=== PATIENT | female | born 1985 | race Native Hawaiian/Other Pacific Islander ===

== ENCOUNTER → 2019-06-28 12:41 | Outpatient (CLI) | payer OTHER, SELFPAY ==
[2019-06-28 13:24] LABS: Influenza A - CEPHEID Flu A NEGATIVE (NEGATIVE); Influenza B - CEPHEID Flu B POSITIVE (NEGATIVE)
[2019-07-03 07:08] LABS: COVID19 Sendout Not Detected (Not Detected)
== END ==
PROVIDERS: PCP Family Medicine; Visit Provider Family Medicine
DX: Z03.818 Encounter for observation for suspected exposure to other biological agents ruled out (principal); R05 Cough
CPT/HCPCS: 87502; 87635

== ENCOUNTER → 2019-07-29 12:42 | Outpatient (CLI) | payer SELFPAY ==
--- NOTE | 2019-07-29 12:46 | DI.US.S_ITS ---
PROCEDURE: US OB <= 14 WEEKS FETUS INDICATIONS: DATES OUTSIDE/PRIOR DATING DATA: Last menstrual period (LMP): 05/28/19. LMP-based estimated date of delivery (SAILAJA): 03/03/20. First dating scan (date and location): This study, 07/29/19. Estimated date of delivery (SAILAJA) from first dating scan: 02/29/20, plus or -5 days. TECHNIQUE: Real-time scanning was performed of the fetus and maternal pelvic organs, with image documentation. Endovaginal scanning was also performed to better visualize the fetus and maternal ovaries. COMPARISON: None. FINDINGS: Embryo: Single living intrauterine gestation with heart rate 175 beats per minute and with crown-rump length 2.5 cm which correlates with a gestational age of 9 weeks 2 days, plus or -5 days. Measurement variability in dating: +/- 4 weeks by LMP, +/- 7 days by mean sac diameter (use before 6 weeks gestation if crown-rump length not able to be measured), +/- 5 days by crown-rump length (up to 8 weeks 6 days gestation), +/- 7 days by crown-rump length (up to 13 weeks 6 days gestation). Maternal organs: Ovaries normal considering gestational status. Limited images through the kidneys demonstrate no hydronephrosis. IMPRESSION: 9 week 2 day gestational age, delivery date projected to be centered on 02/29/20. Followup anatomic survey at 20 weeks gestation is recommended. Dictated by: Jae Vale M.D. on 07/29/2019 at 13:58 Approved by: Jae Vale M.D. on 07/29/2019 at 14:00
== END ==
PROVIDERS: PCP Family Medicine; Referring Provider Family Medicine; Visit Provider Family Medicine
DX: Z34.81 Encounter for supervision of other normal pregnancy, first trimester (principal); Z3A.09 9 weeks gestation of pregnancy
CPT/HCPCS: 76801; 76817

== ENCOUNTER → 2019-08-30 09:34 | Outpatient (CLI) | payer SELFPAY ==
[2019-08-30 12:30] LABS: Appearance Urine UA CLEAR; Bilirubin Urine UA NEGATIVE (NEGATIVE); Color Urine UA YELLOW; Glucose Urine UA NEGATIVE (Negative); Ketones Urine UA NEGATIVE (NEGATIVE); Leukocyte Esterase Urine UA NEGATIVE (NEGATIVE); Nitrite Urine UA NEGATIVE (Negative); Occult Blood Urine UA NEGATIVE (Negative); Protein Urine UA NEGATIVE (Negative); Specific Gravity Urine UA 1.015 (1.000-1.035); Urobilinogen Urine UA 0.2 E.U./dL (0.2)
[2019-08-30 12:36] LABS: Add Manual Diff / Slide Review NO; Basophils Absolute Auto 0 /uL (0-100); Basophils Percent Auto 0.6 % (0-2); Eosinophils Absolute Auto 200 /uL (0-450); Hematocrit 37.3 % (36-46); Hemoglobin 13.4 g/dL (12.0-16.0); Lymphocytes Absolute Auto 1400 /uL (1100-4500); Lymphocytes Percent Auto 18.8 % (25-40); Mean Corpuscular HGB Conc 35.8 % (30-36); Mean Corpuscular Hemoglobin 33.2 PG (26-34); Mean Corpuscular Volume 92.6 fL (80-100); Monocytes Absolute Auto 500 /uL (0-900); Monocytes Percent Auto 7.1 % (3-14); Neutrophils Absolute Auto 5500 /uL (1500-7000); Neutrophils Percent Auto 71.5 % (50-75); Platelet Count 180 X10^3/uL (150-400); Red Blood Cell Count 4.03 X10^6/uL (4.0-5.2); Red Cell Distribution Width 13.2 % (11.6-14.8); White Blood Cell Count 7.7 X10^3/uL (4.5-11.0)
[2019-08-30 12:37] LABS: TSH w/ Reflex to FT4 0.69 uIU/mL (0.47-4.68)
[2019-08-30 13:42] LABS: Hepatitis B Surface Antigen NEGATIVE s/c (NEGATIVE); Rubella Antibody IgG 32.3 IU/mL (>15)
[2019-08-30 13:58] LABS: HIV 1 & 2 Ab/Ag 4th Gen Combo NEGATIVE (NEGATIVE); Hep C Virus Ab w/Reflex Quant NEGATIVE s/c (NEGATIVE)
[2019-08-31 03:40] LABS: RPR Screen Non Reactive (Non Reactive)
[2019-08-31 11:21] LABS: Varicella IgG Antibody 654 index (Immune >165)
== END ==
PROVIDERS: PCP Family Medicine; Referring Provider Family Medicine; Visit Provider Family Medicine
DX: Z34.81 Encounter for supervision of other normal pregnancy, first trimester (principal); M79.672 Pain in left foot; R68.89 Other general symptoms and signs
CPT/HCPCS: 36415; 80055; 81003; 84443; 86787; 86803; 86850; 86900; 86901; 87086; 87389

== ENCOUNTER → 2019-10-20 08:45 | Outpatient (CLI) | payer SELFPAY ==
--- NOTE | 2019-10-20 08:46 | DI.US.S_ITS ---
PROCEDURE: US OB >= 14 WEEKS FETUS INDICATIONS: 34 year-old female referred to evaluate dates and anatomy. OUTSIDE/PRIOR DATING DATA: Last menstrual period (LMP): 05/28/19. LMP-based estimated date of delivery (SAILAJA): 03/03/20. First dating scan (date and location): This study, 07/29/19. Estimated date of delivery (SAILAJA) from first dating scan: 02/29/20, plus or -5 days.. TECHNIQUE: Real-time scanning was performed of the fetus, with image documentation and biometric measurements. Endovaginal scanning: No COMPARISON: None. FINDINGS: General: A single living intrauterine gestation is present. Presentation: Vertex. Placenta: Placental position is posterior, without previa. Amniotic fluid index: 13.9 cm, normal range is 5-24 cm. heart rate: 149 beats per minute. Maternal cervical canal: 3.1 cm long. Normal lower limit is 2.5 cm. biometrics: Biparietal diameter: 19 weeks 5 days Head circumference: 20 weeks 4 days Abdominal circumference: 20 weeks 5 days Femur length: 21 weeks 4 days Estimated gestational age from initial scan: 21 weeks 1 day Composite gestational age from present scan: 20 weeks 5 days Estimated weight and percentile: 390 g; 35th percentile Measurement variability for biometric dating: +/- 7 days from 14 weeks to 15 weeks 6 days gestation, +/- 10 days from 16 weeks to 21 weeks 6 days gestation, +/- 2 weeks from 22 weeks to 27 weeks 6 days gestation, +/- 3 weeks for 28 weeks gestation or later. weight reference: 4500 g or EFW >90/95% is considered macrosomia or large for gestational age. EFW <10% is small for gestational age. EFW 5% or less is considered intra-uterine growth restriction. Anatomic survey: Neuro: Ventricles are non-dilated at less than 10 mm. Cisterna magna is normal at 3-11 mm. Cerebellum is normal in size and morphology. Nuchal skin fold: Normal at less than 6 mm between 14-21 weeks gestational age. Face: Nose and lips are normal. ProfileNot well-seen. Spine: No evidence for spina bifida. Heart: 4-chambered heart is present, with normal ventricular outflow tracts. Diaphragm: Diaphragm is intact. Stomach: Left-sided stomach is present. Kidneys: No hydronephrosis. Normal is less than 5 mm in 2nd trimester, less than 7 mm in 3rd trimester. Cord: 3-vessel cord has orthotopic insertion. Bladder: Normal in size. Extremities: All 4 extremities identified. IMPRESSION: 1. Normal interval growth. 2. facial profile not well-visualized; otherwise normal anatomy. Dictated by: Allen Lazo [facility] Interpreted: Chapo Rosen MD on 10/20/2019 at 9:43 Approved by: Chapo Rosen M.D. on 10/20/2019 at 10:25
== END ==
PROVIDERS: PCP Family Medicine; Referring Provider Family Medicine; Visit Provider Family Medicine
DX: Z36.89 Encounter for other specified antenatal screening (principal); Z3A.20 20 weeks gestation of pregnancy
CPT/HCPCS: 76811

== ENCOUNTER → 2019-11-11 15:39 | Outpatient (CLI) | payer OTHER, SELFPAY ==
[2019-11-13 04:11] LABS: COVID19 Sendout Not Detected (Not Detected)
== END ==
PROVIDERS: PCP Family Medicine; Visit Provider Physician Assistant
DX: Z11.59 Encounter for screening for other viral diseases (principal); J02.9 Acute pharyngitis, unspecified
CPT/HCPCS: 87635

== ENCOUNTER → 2020-01-02 07:11 | Outpatient (CLI) | payer SELFPAY ==
[2020-01-02 08:46] LABS: Hemoglobin 11.3 g/dL (12.0-16.0)
[2020-01-02 09:19] LABS: GTT (PREG) 1 Hour PP 50gm Dose 111 mg/dL (76-139)
== END ==
PROVIDERS: PCP Family Medicine; Referring Provider Family Medicine; Visit Provider Family Medicine
DX: Z34.82 Encounter for supervision of other normal pregnancy, second trimester (principal); Z3A.27 27 weeks gestation of pregnancy
CPT/HCPCS: 36415; 82950; 85014; 85018

== ENCOUNTER → 2020-02-07 13:57 | Outpatient (CLI) | payer SELFPAY ==
[2020-02-08 11:29] LABS: Strep Grp B PCR POS for Grp B Strep
== END ==
PROVIDERS: PCP Family Medicine; Visit Provider Family Medicine
DX: Z34.90 Encounter for supervision of normal pregnancy, unspecified, unspecified trimester (principal); Z3A.36 36 weeks gestation of pregnancy
CPT/HCPCS: 87653

== ENCOUNTER 2020-02-23 02:51 | Inpatient (IN) | payer SELFPAY ==
[2020-02-23 03:33] VITALS: BP 132/75
--- NOTE | 2020-02-23 03:39 | P.HPOB_ITS ---
OB HPI Date/Time Date of admission: 02/23/20 Date Patient Seen: 02/23/20 Time Patient Seen: 03:30 History of Present Condition Chief complaint: Evaluation of Labor : 3 Para: 2 Estimated Date of Delivery: 03/03/20 Estimated Gestational Age (weeks): 38.5 Narrative: Krystin Erickson is a 34 year old female here for evaluation of labor. Contractions started around midnight and rapidly progressed in frequency and intensity. Now breathing through contractions Q 3-4 minutes. +FM. No VB or LOF. Uncomplicated PN care w/ . Planning low intervention . History of Present care: good care Dating criteria: LMP confirmed by 1st trimester US Ultrasounds: normal mid trimester US Obstetrical complications: none Medical complications: none Preadmission Labs Blood type: A (+) positive -: Antibody screen: negative, GBS status: positive, HBsAG: negative, HIV: negative and RPR/VDLR: negative -: Rubella: immune and Varicella: immune HCT: 32 HCAB: negative 1 hr GTT: 111 Prior (ies) History: 07/01/14: NSVB @ 40wks, 14hr labor, male, 8#, epidural 05/13/17: NSVB @ 38.6wks, 4hr labor, male, 8#4oz, unmedicated Evaluation Evaluation Baseline heart rate: 135 Variability: Moderate (11-25) monitor accelerations: Present monitor decelerations: Absent Contraction Frequency (minutes): 3 Uterine Contraction Intensity: Moderate Category of Tracing: Reactive Cervical dilation (cm): 2 Cervical effacement (%): 80 station: -1 [facility] Medical History (Updated 02/23/20 @ 03:50 by Rocio Diaz CNM) Dense breast tissue (Acute) Food sensitivity with gastrointestinal symptoms (Acute) Hairy nevus (Resolved) History of canker sores (Acute) 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 Family/Other Bladder cancer Social History marital status: number of children: 2 lives independently: Yes occupational status: unemployed and other current occupational exposures/hazards: No wander/yazidism: [facility] special wander needs: No Smoking Status: Never smoker second hand exposure: No alcohol intake: never substance use type: does not use Meds Home Medications and Allergies Home Medications Medication Instructions Recorded Confirmed Type No Known Home Medications 08/26/17 01/03/20 History Allergies Allergy/AdvReac Type Severity Reaction Status Date / Time No Known Drug Allergies Allergy Verified 01/03/20 14:04 Review of Systems Review of Systems ROS: Yes All systems reviewed with the patient and are negative except as otherwise documented Exam Vital Signs (past 8 hours): BP 115/71, HR 89bpm, T96.6F Temporal Resp Effort & Inspection: normal respiratory effort Auscultation: clear to auscultation bilaterally Cardio Rate: regular rate Rhythm: regular rhythm Heart Sounds: S1 normal and S2 normal Presentation: vertex Objective Labs Labs: COVID19 PCR-negative Assessment and Plan Assessment and Plan Assessment and Plan narrative: A: Term multpara AMA Approaching active labor GBS prophylaxis indicated hx of rapid labor Cat 1 FHR P: Admit, routine orders w/ CBC, T&S and penicillin for GBS, per protocol. Labor support PRN. Reassess in 4 hours or sooner, PRN. Will call to attend .
[2020-02-23 03:56] LABS: COVID19 -Nasal RAPID Negative (Negative)
[2020-02-23] MEDS: LACTATED RINGERS 1,000 ML 100 ML IV (04:00)
[2020-02-23] MEDS: PENICILLIN G POTASSIUM 5,000,000 UNIT in DEXTROSE 5% IN WATER 250 ML IV (04:00)
[2020-02-23 06:11] LABS: Add Manual Diff / Slide Review NO; Basophils Absolute Auto 100 /uL (0-100); Basophils Percent Auto 0.6 % (0-2); Eosinophils Absolute Auto 100 /uL (0-450); Eosinophils Percent Auto 0.8 % (2-4); Hemoglobin 12.9 g/dL (12.0-16.0); Lymphocytes Absolute Auto 2200 /uL (1100-4500); Lymphocytes Percent Auto 17.5 % (25-40); Mean Corpuscular HGB Conc 33.1 % (30-36); Mean Corpuscular Hemoglobin 31.4 PG (26-34); Mean Corpuscular Volume 94.8 fL (80-100); Monocytes Absolute Auto 1200 /uL (0-900); Monocytes Percent Auto 9.5 % (3-14); Neutrophils Absolute Auto 8800 /uL (1500-7000); Neutrophils Percent Auto 71.6 % (50-75); Platelet Count 177 X10^3/uL (150-400); Red Blood Cell Count 4.11 X10^6/uL (4.0-5.2); Red Cell Distribution Width 14.6 % (11.6-14.8); White Blood Cell Count 12.3 X10^3/uL (4.5-11.0)
--- NOTE | 2020-02-23 07:59 | PM.OBPRVD ---
Labor & Delivery Delivery date: 02/23/20 Intrapartal events: None Cervical ripening method: none Induction method: none Delivery monitor: external FHT Route of delivery: L&D Laceration Description: Perineal - 2nd Degree Delivery repair: chromic Estimated blood loss (mL): 350 Anesthesia type: None Narrative: Patient is a 29-year-old at 38 weeks and days gestation who gave on 02/23/20 at 7:22 a.m.. SAILAJA: 03/03/20 Hospital problems: 38 weeks of GBS positive STAGE I: Labor Patient presented in early labor. She received 1 dose of GBS prophylaxis and transitioned into active labor quickly. She was monitored intermittently throughout stage I. She requested an epidural however there was not time before delivery. Spontaneous rupture of membranes occurred at 7:15 a.m. with clear fluid. Stage I duration 3 hours and 45 minutes. STAGE II: Delivery Patient was presumed complete at the time of spontaneous rupture membranes. Spontaneous vaginal delivery occurred at 7:22 a.m.. Patient delivered on hands and knees. Infant was vertex and occiput anterior. There was a nuchal cord x1 which was reduced then remainder of delivered without difficulty. was placed on the bed, mother turned into the seated position on the bed then was placed on mother. Cord was clamped after approximately 2 minute delay and cut by father. Apgars were 8 and 9. weight 3116 g. The second stage of labor lasted 7 minutes. STAGE III: Placenta/Cord Placenta delivered spontaneously at 7:28 a.m. after active management and appeared intact with a three-vessel cord. Pitocin bolus given after delivery of placenta. Fundus was firm below umbilicus. A second-degree perineal laceration was repaired with 3-0 chromic with good hemostasis. EBL: 350 mL. Needle and sponge counts were correct. The vagina was inspected and no items were left in situ. Patient was doing well with Radha, her and at bedside. Baby 1: gender: Female Presentation: vertex Placenta delivery description: Spontaneous cord vessel description: Nuchal Cord (x1, reduced) score (1 min): 8 score (5 min): 9
[2020-02-23] MEDS: DERMOPLAST SPRAY 20% 60 ML 1 SPRAY TOP (11:04)
[2020-02-23] MEDS: DOCUSATE 100 MG CAPSULE PO (11:05)
[2020-02-23] MEDS: IBUPROFEN 600 MG TABLET PO ×3 (11:05→22:31)
[2020-02-23] MEDS: LANOLIN OINT 7 GM 1 APPLIC TOP (11:06)
--- NOTE | 2020-02-24 08:24 | P.DS_ITS ---
Discharge Providers Provider Date of admission: 02/23/20 02:51 Discharge Date: 02/24/20 Primary care physician: Paris Reed DO Consults: 02/24/20 08:00 Consult to [employer] Routine Comment: Discharge provider: Paris Reed DO Summary Hospital Course Date Patient Seen: 02/24/20 Time Patient Seen: 08:00 Procedures: Spontaneous vaginal delivery Hospital Course: 34 year old [id number] after uncomplicated spontaneous vaginal delivery at 38 weeks and 5 days on 02/23/20. Patient was GBS+ and received one dose of antibiotics prior to delivery. SROM occurred 10 minutes prior to delivery. She went on to deliver a healthy female infant. A second degree laceration was repaired. course uncomplicated. She was ambulating, voiding and stooling without issue. Pain controlled with ibuprofen. Vaginal bleeding moderate. going well without issues in the . Patient advised to call for fevers, severe pain or bleeding through more than a pad an hour. Follow up for 6 week check. Peripartum Data Delivery Method: Natural Vaginal Laceration Description: Perineal - 2nd Degree complications: none 1: Gender: Female Disposition of : home Discharge Diagnosis (1) 38 weeks gestation of : Status: Acute Status at Discharge Cognitive/behavioral status at discharge: at baseline, oriented Functional status at discharge: independent ambulation Overall status at discharge: patient is progressing back to baseline Time Spent with Patient Time attestation: Total time spent providing and/or coordinating discharge serv ices: Time spent: Less than 30 minutes Objective Labs Result Diagrams: 02/23/20 03:55 Labs: Laboratory Results - last 24 hr 02/23/20 03:55 Blood Type A Positive Antibody Screen Negative Exam Vital Signs (past 8 hours): Temperature 98.8? blood pressure 122/74 heart rate 84 respirations 12 General: Awake and alert, no acute distress. HEENT: NCAT, EOMI, moist oral mucosa CV: Regular rate and rhythm, no murmurs, rubs or gallops Lungs: CTAB, no wheezes, rales, or rhonchi Abdomen: Soft, nontender; bowel tones active; uterus firm 1 cm below umbilicus Extremities: Warm, no edema Discharge Plan Discharge Plan Patient Disposition: Home Discharge orders & Medications Prescriptions: New docusate sodium [DOK] 100 mg Capsule 100 mg PO DAILY Qty: 30 RF: 0 ibuprofen 600 mg Tablet 600 mg PO Q6HR PRN (Reason: Pain, Mild (1-3)) Qty: 30 RF: 0 No Action No Known Home Medications RF: 0 Follow up/Referrals: Paris Reed DO [Primary Care Provider] - 6 Weeks (Pt has post appointment on 04/19/2020 @ 10:00am with Dr. Reed) Visit Report/Discharge Packet Stand Alone Forms: Discharge: Care Visit Report Forms: Patient Portal/API, Stroke Signs & Symptoms Discharge Data Primary Care Provider: Paris Reed Discharges patient from system. Discharge Date/Time: 02/24/20 11:05
[2020-02-24 08:40] VITALS: BP 132/75
== END 2020-02-24 11:05 | disposition home or self-care (01) | DRG 807 ==
PROVIDERS: Nurse Practitioner Obstetrics & Gynecology; Admitting Provider Family Medicine; PCP Family Medicine; Referring Provider Family Medicine; Visit Provider Family Medicine
DX: O99.824 Streptococcus B carrier state complicating childbirth (principal); Z37.0 Single live birth; Z3A.38 38 weeks gestation of pregnancy; O70.1 Second degree perineal laceration during delivery; O69.81X0 Labor and delivery complicated by cord around neck, without compression, not applicable or unspecified; Z11.59 Encounter for screening for other viral diseases
CPT/HCPCS: 36415; 59050; 59400; 85025; 86850; 86900; 86901; 87635; G0379; J2540

== ENCOUNTER → 2020-07-18 16:03 | Outpatient (CLI) | payer OTHER, SELFPAY ==
[2020-07-18] MEDS: COVID-19 VACC #1, MRNA(MOD) 100 MCG/0.5 ML VIAL IM (16:28)
== END ==
PROVIDERS: PCP Family Medicine; Visit Provider Internal Medicine
DX: Z23 Encounter for immunization (principal)
CPT/HCPCS: 0011A; 91301

== ENCOUNTER → 2020-08-15 15:57 | Outpatient (CLI) | payer OTHER, SELFPAY ==
[2020-08-15] MEDS: COVID-19 VACC #2, MRNA(MOD) 100 MCG/0.5 ML VIAL IM (16:02)
== END ==
PROVIDERS: PCP Family Medicine; Visit Provider Internal Medicine
DX: Z23 Encounter for immunization (principal)
CPT/HCPCS: 0012A; 91301